=== PATIENT | male | born 1950 | race Caucasian/White ===

== ENCOUNTER → 2022-07-08 | Outpatient (CLI) | payer MEDICARE, BC | LOC: MHCPAIN 13:23 | DX: M48.061 Spinal stenosis, lumbar region without neurogenic claudication (principal); M54.16 Radiculopathy, lumbar region; M51.36 Other intervertebral disc degeneration, lumbar region | CPT/HCPCS: G0463 ==

== ENCOUNTER 2022-08-02 08:03 | Day surgery (SDC) | payer MEDICARE, BC ==
[~2022-08-02] VITALS: Ht 182.9 cm; Wt 115.5 kg
[2022-08-02] VITALS (13 sets, daily range): BP systolic 100–140; BP diastolic 66–90; PULSE 65–72; TEMP 97.8
[2022-08-02] MEDS ORDERED: CYMBALTA 60MG60 MG PO (09:03)
[2022-08-02] MEDS ORDERED: CELEBREX 200MG200 MG PO (09:03)
[2022-08-02] MEDS ORDERED: LASIX 40MG TABL40 MG PO (09:04)
[2022-08-02] MEDS ORDERED: WELLBUTRIN XL300 M1 PO (09:04)
[2022-08-02] MEDS ORDERED: DITROPAN XL10 MG PO ×2 (09:04→09:42)
[2022-08-02] MEDS ORDERED: PROTONIX 40MG T40 MG PO (09:05)
[2022-08-02] MEDS ORDERED: NORVASC 5MG5 MG/TAB PO (09:05)
[2022-08-02] MEDS ORDERED: ASPIRIN E.C. 8181 MG PO (09:05)
[2022-08-02 09:07] LABS: HEMATOCRIT 42.6 % (42.0-52.0); HEMOGLOBIN 14.3 g/dl (13.5-18.0); MEAN CELL VOLUME 92 fl (80.0-100.0); MEAN CORPUSCULAR HEMOGLOBIN 31 pg (27-31); MEAN CORPUSCULAR HGB CONC 34 g/dl (33.0-37.0); MEAN PLATELET VOLUME 11.6 fl (7.4-10.4); PLATELET COUNT 161 K/mm3 (130-400); RED BLOOD COUNT 4.63 M/mm3 (4.20-5.60); REDCELL DISTRIBUTION WIDTH-CV 12.9 % (11.5-14.5)
[2022-08-02 09:18] LABS: CALCIUM 8.9 mg/dL (8.4-10.2); CREATININE, serum 0.94 mg/dL (0.72-1.25); POTASSIUM 4.3 mmol/L (3.5-4.5)
[2022-08-02 09:26] LABS: PROTHROMBIN TIME 11.6 SECONDS (9.7-12.8)
[2022-08-02 09:29] LABS: PARTIAL THROMBOPLASTIN TIME 31.3 SECONDS (26.0-37.0)
[2022-08-02] MEDS ORDERED: SINGULAIR 110 MG/TAB PO (09:32)
[2022-08-02] MEDS ORDERED: ZETIA 10MG TAB10 MG PO (09:33)
[2022-08-02] MEDS ORDERED: PROSCAR 5MG5 MG PO (09:33)
[2022-08-02] MEDS ORDERED: NEURONTIN300 MG/CAP PO (09:33)
[2022-08-02] MEDS ORDERED: PLAVIX 75MG TAB75 MG PO (09:34)
[2022-08-02] MEDS ORDERED: REMERON 15M15 MG/TA1 PO (09:34)
[2022-08-02] MEDS ORDERED: REQUIP 1MG T1 MG/TAB PO (09:34)
[2022-08-02] MEDS ORDERED: COZAAR100 MG PO (09:35)
[2022-08-02] MEDS ORDERED: FLOMAX 0.40.4 MG/CAP PO (09:35)
[2022-08-02] MEDS ORDERED: CRESTOR40 MG PO (09:36)
[2022-08-02] MEDS ORDERED: MELATONIN5 M1 SL (09:45)
--- NOTE | 2022-08-02 10:59 | NUR ---
See merge for all medication, assessment, intervention, and vital sign times.
--- NOTE | 2022-08-02 16:45 | NUR ---
DC instructions reviewed with pt and . Both express understanding. Dressing to rt femoral puncture site remains clean, dry and intact. Pt is able to ambulate around room with steady gait. He has tolerated PO without issue. IV site DC'd, wrapped with coban. He is assited out to 's car by wheelchair.
== END 2022-08-02 16:45 | disposition home or self-care (01) ==
LOC: COL.CAR 08:03
PROVIDERS: Internal Medicine Cardiovascular Disease
DX: I25.810 Atherosclerosis of coronary artery bypass graft(s) without angina pectoris (principal); J45.909 Unspecified asthma, uncomplicated; I10 Essential (primary) hypertension; E78.49 Other hyperlipidemia; I65.23 Occlusion and stenosis of bilateral carotid arteries; Z87.891 Personal history of nicotine dependence
CPT/HCPCS: C1760; C1769; C1887; C1894; J1644; J2250; J3010; Q9967

== ENCOUNTER 2022-09-13 12:30 | Inpatient (IN) | payer MEDICARE, BC ==
[2022-09-13] VITALS (164 sets, daily range): BP systolic 108–121; BP diastolic 65–70; PULSE 66–80; TEMP 98–98.1; O2SAT 81–100
[~2022-09-13] VITALS: Ht 185.4 cm; Wt 121.9 kg
[~2022-09-13 12:30] MED LIST: ASPIRIN E.C. 8181 MG PO; CELEBREX 200MG200 MG PO; COZAAR100 MG PO; CRESTOR40 MG PO; CYMBALTA 60MG60 MG PO; DITROPAN XL10 MG PO; FLOMAX 0.40.4 MG/CAP PO; LASIX 40MG TABL40 MG PO; MELATONIN5 M1 SL; NEURONTIN300 MG/CAP PO; NORVASC 5MG5 MG/TAB PO; PLAVIX 75MG TAB75 MG PO; PROSCAR 5MG5 MG PO; PROTONIX 40MG T40 MG PO; REMERON 15M15 MG/TA1 PO; REQUIP 1MG T1 MG/TAB PO; SINGULAIR 110 MG/TAB PO; WELLBUTRIN XL300 M1 PO; ZETIA 10MG TAB10 MG PO
[2022-09-13 12:49] LABS: BASO % 0.3 % (0.0-2.0); EOS # 0.3 K/mm3 (0.0-0.7); EOS % 2.7 % (0.0-4.0); GRAN # 8.5 K/mm3 (1.4-6.5); GRAN % 69.4 % (42.2-75.2); HEMATOCRIT 37.7 % (42.0-52.0); HEMOGLOBIN 12.5 g/dl (13.5-18.0); LYMPH # 2.5 K/mm3 (1.2-3.4); LYMPH % 20.3 % (20.0-51.0); MEAN CELL VOLUME 95 fl (80.0-100.0); MEAN CORPUSCULAR HEMOGLOBIN 31 pg (27-31); MEAN CORPUSCULAR HGB CONC 33 g/dl (33.0-37.0); MEAN PLATELET VOLUME 11.9 fl (7.4-10.4); MONO # 0.8 K/mm3 (0.1-0.6); MONO % 6.8 % (1.7-9.3); PLATELET COUNT 183 K/mm3 (130-400); RED BLOOD COUNT 3.98 M/mm3 (4.20-5.60); REDCELL DISTRIBUTION WIDTH-CV 13.5 % (11.5-14.5)
[2022-09-13 12:58] LABS: PROTHROMBIN TIME 11.2 SECONDS (9.7-12.8)
[2022-09-13 13:00] LABS: PARTIAL THROMBOPLASTIN TIME 20.3 SECONDS (26.0-37.0)
[2022-09-13 13:01] LABS: ALBUMIN 3.7 gm/dL (3.4-4.8); BILIRUBIN,TOTAL 0.8 mg/dL (0.2-1.2); CALCIUM 8.3 mg/dL (8.4-10.2); CREATININE, serum 1.64 mg/dL (0.72-1.25); POTASSIUM 3.9 mmol/L (3.5-4.5)
[2022-09-13 13:11] LABS: TROPONIN-I 0.05 ng/mL (0.00-0.033)
[2022-09-13 15:42] LABS: COLLECTION METHOD CATHETER
[2022-09-13 15:51] LABS: MUCOUS Present (NOT PRESENT); SQUAMOUS EPITHELIAL 0-2 /hpf (0-10); URINE BACTERIA None Seen /hpf (NONE SEEN)
[2022-09-13 15:52] LABS: PH 5.5 (5.0-8.5); URINE APPEARANCE Clear (CLEAR/HAZY); URINE COLOR Amber (YELLOW)
[2022-09-13 15:53] LABS: URINE BLOOD Negative (NEGATIVE); URINE GLUCOSE Negative (NEGATIVE); URINE KETONE TRACE (NEGATIVE); URINE NITRATE Negative (NEGATIVE); URINE PROTEIN(semi-quant) 1+ (NEGATIVE); URINE UROBILINOGEN 0.2 E.U/dL (0.2-1.0)
--- NOTE | 2022-09-13 17:15 | NUR ---
Arrived to the unit from the ED. Alert and oriented and in no distress upon arrival. Attached to all monitors; VS stable. Call light left within reach.
[2022-09-13] MEDS ORDERED: REPATHA (17:44)
[2022-09-13] MEDS ORDERED: PREDNISONE10 MG PO (17:44)
[2022-09-13 17:50] LABS: PARTIAL THROMBOPLASTIN TIME 24.4 SECONDS (26.0-37.0)
--- NOTE | 2022-09-13 20:00 | NUR ---
SHIFT REPORT RECEIVED. PT A&O, EATING EVENING MEAL. PT WITH HX OF CVA AND NGUYEN'S PAULSEY CAUSING LT SIDED FACIAL DROOP AND LT SIDED WEAKNESS. PT ABLE TO EAT AND SWALLOW WO DIFFICULITY.
[2022-09-14] VITALS (7 sets, daily range): BP systolic 97–146; BP diastolic 51–81; PULSE 55–78; TEMP 97.4–978
--- NOTE | 2022-09-14 00:15 | NUR ---
RECEIVED REPORT FROM MANUEL CLARK. CARE TAKEN OVER AT THIS TIME.
[2022-09-14 04:48] LABS: BASO # 0.1 K/mm3 (0.0-0.2); BASO % 0.5 % (0.0-2.0); EOS # 0.5 K/mm3 (0.0-0.7); EOS % 5.4 % (0.0-4.0); GRAN # 6.3 K/mm3 (1.4-6.5); GRAN % 66.5 % (42.2-75.2); HEMOGLOBIN 12.6 g/dl (13.5-18.0); LYMPH % 21.1 % (20.0-51.0); MEAN CELL VOLUME 95 fl (80.0-100.0); MEAN CORPUSCULAR HEMOGLOBIN 32 pg (27-31); MEAN CORPUSCULAR HGB CONC 33 g/dl (33.0-37.0); MEAN PLATELET VOLUME 11.7 fl (7.4-10.4); MONO # 0.6 K/mm3 (0.1-0.6); MONO % 6.1 % (1.7-9.3); PLATELET COUNT 166 K/mm3 (130-400); REDCELL DISTRIBUTION WIDTH-CV 13.7 % (11.5-14.5)
[2022-09-14 05:00] LABS: ALBUMIN 3.3 gm/dL (3.4-4.8); CREATININE, serum 0.99 mg/dL (0.72-1.25); MAGNESIUM 2.3 mg/dL (1.6-2.6); PHOSPHOROUS 3.7 mg/dL (2.3-4.7)
--- NOTE | 2022-09-14 05:33 | NUR ---
PT ATTEMPTED TO USE URINAL TO VOID. STATED HE DIDN'T FEEL THE NEED TO GO BUT WOULD ATTEPT. PT TRIED FOR APPROXIMATELY 10 MINUTES. RN BLADDER SCANNED PT. SCANNER SHOWED 653ML RETAINED. RHETT SALAS NOTIFIED. GAVE TELEPHONE ORDERS FOR A STRAIGHT CATHETER TO REMOVE URINE.
--- NOTE | 2022-09-14 10:32 | NUR ---
SW met with patient to complete intake. Patient reports that he lives at home in [place] alone. He is fully independent with his ADL's and IADL's and does not utilize any DME to assist with mobility. Patient has no home oxygen needs.PCP is Dr. Weiss and he utilizes [facility] for prescriptions. Patient reports that he does have a [facility]- established listing [employer] ([phone]) as his agent but the hospital does not have a copy on file. Patient denies having any home health services at this time but does have a housekeeper/custodian/laundry worker that comes out once a week. Patient have PT/OT ordered and will await their eval.
--- NOTE | 2022-09-14 14:56 | NUR ---
Report given to Eliot JACKSON
--- NOTE | 2022-09-14 21:49 | NUR ---
Patient assessed around 2019. Alert and oriented x 4, and able to make needs known. Denies having pain and discomfort at this time. Started on IV fluids per orders. TLC to right IJ. Patient voices no questions, needs, or concerns at this time. In bed with call light within reach.
[2022-09-15 04:11] VITALS: BP 103/64; PULSE 74; TEMP 97.7
[2022-09-15 04:49] LABS: BASO # 0.1 K/mm3 (0.0-0.2); BASO % 0.7 % (0.0-2.0); EOS # 0.4 K/mm3 (0.0-0.7); EOS % 4.1 % (0.0-4.0); GRAN # 5.7 K/mm3 (1.4-6.5); GRAN % 62.1 % (42.2-75.2); HEMOGLOBIN 11.8 g/dl (13.5-18.0); LYMPH # 2.3 K/mm3 (1.2-3.4); LYMPH % 24.8 % (20.0-51.0); MEAN CELL VOLUME 96 fl (80.0-100.0); MEAN CORPUSCULAR HEMOGLOBIN 31 pg (27-31); MEAN CORPUSCULAR HGB CONC 32 g/dl (33.0-37.0); MEAN PLATELET VOLUME 12.1 fl (7.4-10.4); MONO # 0.7 K/mm3 (0.1-0.6); PLATELET COUNT 158 K/mm3 (130-400); RED BLOOD COUNT 3.81 M/mm3 (4.20-5.60); REDCELL DISTRIBUTION WIDTH-CV 13.8 % (11.5-14.5)
[2022-09-15 04:51] LABS: HEMATOCRIT 36.6 % (42.0-52.0)
[2022-09-15 05:10] LABS: CALCIUM 7.9 mg/dL (8.4-10.2); CREATININE, serum 0.81 mg/dL (0.72-1.25); MAGNESIUM 2.1 mg/dL (1.6-2.6); PHOSPHOROUS 2.9 mg/dL (2.3-4.7)
--- NOTE | 2022-09-15 05:15 | NUR ---
Patient continues on IV fluids per orders. Denies having pain and discomfort. Voices no questions, needs, or concerns at this time. In bed with call light within reach.
[2022-09-15 08:03] VITALS: BP 163/83; PULSE 75; TEMP 98.3
[2022-09-15 08:05] VITALS: BP 163/83
--- NOTE | 2022-09-15 10:41 | NUR ---
Initial visit; Patient very nice and complimentary of our staff. Scout thanked Product/Industry Consultant for looking in on him and offering spiritual care. He thanked Product/Industry Consultant for offering God's blessings.
[2022-09-15 11:27] VITALS: BP 131/77; PULSE 74; TEMP 97.9
[2022-09-15] MEDS ORDERED: CEPHALEXIN500 M1 PO (15:32)
--- NOTE | 2022-09-15 17:13 | NUR ---
PATIENTS RIJ CENTRAL LINE REMOVED, PRESSURE HELD FOR 15 MINUTES. PATIENT AWARE OF 30 MINUTE FLAT TIME-ENDS AT 1710. WILL CONT TO MONITOR.
--- NOTE | 2022-09-15 17:25 | NUR ---
PATIENT RIJ REMOVEL SITE CLEAN DRY AND INTACT. POST PICC REMOVAL EDUCATION GIVEN FOR GUIDELINES ON WHAT TO WATCH FOR AT HOME, AND REVIEWED WITH PATIENT.PATIENT LOOP RECORDER IMPLANTATIONN SITE CLEAN DRY AND INTACT. ALL DISCHARGRE EDUCATION AND INSTRUCTIONS GIVEN TO AND DISCUSSED WITH PATIENT.
--- NOTE | 2022-09-15 17:55 | NUR ---
TELEMETRY REMOVED. PATIENT TAKEN VIA WHEELCHAIR BY PCT TO ER ENTRTANCE WHERE HE WAS PICKED U BY HIS SISTER. PATIENT LEFT IN STABLE CONDITION.
== END 2022-09-15 17:55 | disposition home or self-care (01) | DRG 260 ==
LOC: COL.ER 12:30 → ICU 15:19 → EDBEDREQSVC 16:17 → EDBEDREQTM 16:17 → EDBEDREQ 16:17 → ICU 09-14 02:59 → MEDICAL 09-14 16:03
PROVIDERS: Emergency Medicine; ADMIT Internal Medicine
PROC: 0JH632Z Insertion of Monitoring Device into Chest Subcutaneous Tissue and Fascia, Percutaneous Approach (ICD-10-PCS; principal; 2022-09-15)
DX: I95.9 Hypotension, unspecified (principal); R57.1 Hypovolemic shock; N17.9 Acute kidney failure, unspecified; I50.32 Chronic diastolic (congestive) heart failure; G51.0 Bell's palsy; I25.10 Atherosclerotic heart disease of native coronary artery without angina pectoris; E11.9 Type 2 diabetes mellitus without complications; N40.0 Benign prostatic hyperplasia without lower urinary tract symptoms; I11.0 Hypertensive heart disease with heart failure; D72.829 Elevated white blood cell count, unspecified; I49.3 Ventricular premature depolarization; G47.33 Obstructive sleep apnea (adult) (pediatric); E78.5 Hyperlipidemia, unspecified; I65.22 Occlusion and stenosis of left carotid artery; I34.0 Nonrheumatic mitral (valve) insufficiency; Z95.1 Presence of aortocoronary bypass graft; Z79.82 Long term (current) use of aspirin; Z86.73 Personal history of transient ischemic attack (TIA), and cerebral infarction without residual deficits; Z87.891 Personal history of nicotine dependence; Z90.89 Acquired absence of other organs; Z23 Encounter for immunization
CPT/HCPCS: C1764; J0696; J1644; J7030; J7060; J7120; J7512

== ENCOUNTER 2023-09-05 09:53 | Inpatient (IN) | payer MEDICARE, BC ==
[~2023-09-05] VITALS: Ht 185.4 cm; Wt 111.0 kg
[~2023-09-05 09:53] MED LIST changes: +CEPHALEXIN500 M1 PO; +CYMBALTA 20MG20 MG PO; -CYMBALTA 60MG60 MG PO; +KLOR-CON M1010 MEQ PO; +PREDNISONE10 MG PO; +REPATHA SU140 MG/1 M SQ; +VITAMIN D 400400 IU PO
[2023-09-05] MEDS ORDERED: NORCO 325 MG-51 TAB PO (11:20)
[2023-09-05] MEDS ORDERED: WHCH MC (11:24)
[2023-09-05 12:30] LABS: BASO # 0.1 K/mm3 (0.0-0.2); BASO % 0.7 % (0.0-2.0); EOS # 0.2 K/mm3 (0.0-0.7); EOS % 1.7 % (0.0-4.0); GRAN # 9.2 K/mm3 (1.4-6.5); GRAN % 73.4 % (42.2-75.2); HEMATOCRIT 46.2 % (42.0-52.0); HEMOGLOBIN 14.9 g/dl (13.5-18.0); LYMPH # 2.1 K/mm3 (1.2-3.4); LYMPH % 16.4 % (20.0-51.0); MEAN CELL VOLUME 96 fl (80.0-100.0); MEAN CORPUSCULAR HEMOGLOBIN 31 pg (27-31); MEAN CORPUSCULAR HGB CONC 32 g/dl (33.0-37.0); MEAN PLATELET VOLUME 11.8 fl (7.4-10.4); MONO # 0.9 K/mm3 (0.1-0.6); MONO % 7.3 % (1.7-9.3); PLATELET COUNT 181 K/mm3 (130-400); RED BLOOD COUNT 4.81 M/mm3 (4.20-5.60); REDCELL DISTRIBUTION WIDTH-CV 14.9 % (11.5-14.5)
[2023-09-05 12:49] LABS: ALBUMIN 3.7 gm/dL (3.4-4.8); BILIRUBIN,TOTAL 0.9 mg/dL (0.2-1.2); CALCIUM 9.1 mg/dL (8.4-10.2); CREATININE, serum 1.12 mg/dL (0.72-1.25); POTASSIUM 4.2 mmol/L (3.5-4.5); TOTAL PROTEIN 6.7 gm/dL (6.2-8.1)
[2023-09-05] MEDS ORDERED: NEURONTIN300 MG/CAP PO (13:03)
[2023-09-05] MEDS ORDERED: JARDIANCE10 PO (13:06)
[2023-09-05] MEDS ORDERED: KLONOPIN 0.5MG0.5 MG PO (13:07)
[2023-09-05] MEDS ORDERED: TOPROL XL 25MG25 MG PO (13:07)
[2023-09-05] MEDS ORDERED: TRELEGY ELLIPT1 EAC1 IH (13:08)
--- NOTE | 2023-09-05 15:00 | NUR ---
DR TORO CALLED TO NOTIFY OF CONSULT. STATES THAT HE HAS ALREADY BEEN NOTIFIED AND REFUSES TO ACCEPT THIS PT. RD DELANEY NOTIFIED.
--- NOTE | 2023-09-05 15:00 | NUR ---
REPORT RECEIVED FROM BOB JACKSON IN ER. PT UP TO FLOOR AT THIS TIME. VITALS STABLE, A/O X4, PAIN 5/10 IN RIGHT ANKLE, LEFT ANKLE TO BOOT. NO NEEDS AT THIS TIME. WILL CONTINUE TO MONITOR.
[2023-09-05 16:00] VITALS: BP 144/73; PULSE 61; TEMP 97.6
[2023-09-05 19:29] VITALS: BP 109/72; PULSE 68; TEMP 97.8
[2023-09-05 21:00] VITALS: BP_SYST 109
--- NOTE | 2023-09-05 21:38 | NUR ---
RECEIVED REPORT FROM RD SALAMANCA RN. PATIENT RESTING IN BED TALKING ON CELL PHONE AT THIS TIME. CALL LIGHT WITHIN REACH.
--- NOTE | 2023-09-05 21:41 | NUR ---
HEAD TO TOE ASSESSMENT COMPLETED. PAIN LEVEL 8/10 TO LEFT FOOT. PUPILS EQUAL AND REACTIVE. HEART SOUNDS REGULAR WITH S1 AND S2 NOTED. LUNG SOUNDS CLEAR BILATERALLY IN UPPER AND LOWER LOBES. BOWEL SOUNDS AUDIBLE IN ALL QUADRANTS. PULSES PRESENT AND EQUAL BILATERALLY IN UPPER AND LOWER EXTREMITIES. MEDICATIONS GIVEN PER EMAR. CALL LIGHT WITHIN REACH.
[2023-09-05 23:16] VITALS: BP 158/61; PULSE 68; TEMP 97.9
[2023-09-06 00:57] VITALS: BP_SYST 158
[2023-09-06 03:47] VITALS: BP 149/62; PULSE 68; TEMP 98.1
[2023-09-06 04:49] VITALS: BP_SYST 149
--- NOTE | 2023-09-06 06:19 | NUR ---
PATIENT SET BED ALARM OFF SEVERAL TIMES THROUGHOUT NIGHT. PATIENT INCONTINENT OF URINE, FULL LINEN CHANGE DONE. PATIENT ASSISTED TO BATHROOM TO VOID WITH 1X ASSIST AND CONTINENT OF URINE. PATIENT RECEIVED PRN PAIN MEDICATION AROUND 0430. PATIENT CURRENTLY RESTING IN BED WITH EYES CLOSED. CALL LIGHT WITHIN REACH.
[2023-09-06 07:44] VITALS: BP 139/60; PULSE 56; TEMP 97.9
--- NOTE | 2023-09-06 08:10 | NUR ---
PT RESTING IN BED WITH PAIN 04/23. ICE APPLIED TO R ANKLE, L ANKLE IN BOOT. PT AMBULATED TO BATHROOM WITH 1 ASSIST AND WALKER. NO NEEDS AT THIS TIME. WILL CONTINUE TO MONITOR.
[2023-09-06 09:03] LABS: BASO # 0.1 K/mm3 (0.0-0.2); BASO % 0.6 % (0.0-2.0); EOS # 0.2 K/mm3 (0.0-0.7); EOS % 2.1 % (0.0-4.0); GRAN # 5.8 K/mm3 (1.4-6.5); GRAN % 65.8 % (42.2-75.2); HEMATOCRIT 43.6 % (42.0-52.0); HEMOGLOBIN 13.9 g/dl (13.5-18.0); LYMPH # 2.1 K/mm3 (1.2-3.4); LYMPH % 24.3 % (20.0-51.0); MEAN CELL VOLUME 95 fl (80.0-100.0); MEAN CORPUSCULAR HEMOGLOBIN 30 pg (27-31); MEAN CORPUSCULAR HGB CONC 32 g/dl (33.0-37.0); MEAN PLATELET VOLUME 12.1 fl (7.4-10.4); MONO # 0.6 K/mm3 (0.1-0.6); MONO % 6.7 % (1.7-9.3); PLATELET COUNT 161 K/mm3 (130-400); RED BLOOD COUNT 4.57 M/mm3 (4.20-5.60); REDCELL DISTRIBUTION WIDTH-CV 14.8 % (11.5-14.5)
[2023-09-06 09:18] LABS: CALCIUM 8.5 mg/dL (8.4-10.2); CREATININE, serum 0.88 mg/dL (0.72-1.25)
--- NOTE | 2023-09-06 10:19 | NUR ---
culinary worker met with patient to discuss discharge planning who was drowsy. Patient lives alone in [place]. He sees Dr. Weiss and uses [facility] with no difficulties affording his medications. His sister Ingrid [phone] is his DPOA-HC, he has a copy at home. Patient is independent with all ADLS and uses a walker and Bipap machine at home. culinary worker informed him that they are waiting on his PT-OT eval. Patient is agreeable. Discharge Plan: Pending PT/OT Eval and possible IPR placement.
[2023-09-06 11:57] VITALS: BP 133/76; PULSE 65; TEMP 97.7
--- NOTE | 2023-09-06 12:26 | NUR ---
community center worker was contacted by RHETT Hare, regarding patient. Ananya expressed the medical team was considering patient a good candidate for IPR services. community center worker was notified by PT that patient would benefit from additional therapies prior to returning home and thought he may be good for IPR services. SW met with patient to discuss options. Patient was in agreement that he would like to go to IPR if eligible. SW notified the IPR liasion about referral to IPR. Discharge Plan: IPR or SNF
[2023-09-06] MEDS ORDERED: ROXICODONE 55 MG/TAB PO (16:05)
[2023-09-06] MEDS ORDERED: TYLENOL 500MG500 MG PO (16:05)
--- NOTE | 2023-09-06 16:21 | NUR ---
REPORT GIVEN TO CHILANGO IN IPR. IV AND MAJOR REMOVED.
== END 2023-09-06 16:20 | DRG 563 ==
LOC: COL.ER 09:53 → SURG 12:18
PROVIDERS: Physician Assistant; ADMIT Internal Medicine
DX: S82.65XA Nondisplaced fracture of lateral malleolus of left fibula, initial encounter for closed fracture (principal); I69.354 Hemiplegia and hemiparesis following cerebral infarction affecting left non-dominant side; W01.0XXA Fall on same level from slipping, tripping and stumbling without subsequent striking against object, initial encounter; D72.829 Elevated white blood cell count, unspecified; I48.91 Unspecified atrial fibrillation; Z66 Do not resuscitate; F32.A Depression, unspecified; I25.10 Atherosclerotic heart disease of native coronary artery without angina pectoris; I10 Essential (primary) hypertension; E78.5 Hyperlipidemia, unspecified; G62.9 Polyneuropathy, unspecified; N40.0 Benign prostatic hyperplasia without lower urinary tract symptoms; M79.671 Pain in right foot; I44.0 Atrioventricular block, first degree; K21.9 Gastro-esophageal reflux disease without esophagitis; J44.9 Chronic obstructive pulmonary disease, unspecified; Z85.46 Personal history of malignant neoplasm of prostate; Y93.89 Activity, other specified; Z95.1 Presence of aortocoronary bypass graft; Y92.89 Other specified places as the place of occurrence of the external cause; Z90.89 Acquired absence of other organs; Z87.891 Personal history of nicotine dependence; Z79.899 Other long term (current) drug therapy; Z79.02 Long term (current) use of antithrombotics/antiplatelets; Z79.82 Long term (current) use of aspirin; Z23 Encounter for immunization
CPT/HCPCS: J1650; J2270; J7030